=== PATIENT | female | born 1985 | race Caucasian/White ===

== ENCOUNTER 2024-02-12 12:29 | Emergency (ER) | payer SELFPAY ==
[~2024-02-12] VITALS: Ht 154.9 cm; Wt 58.0 kg
[2024-02-12 12:52] VITALS: TEMP 98.3; O2SAT 99
[2024-02-12 15:32] LABS: DIFFERENTIAL COMMENT 1; HEMATOCRIT. 38.6 % (36.0-48.0); MEAN CORPUSCULAR HEMOGLOBIN 31.7 pg (28.0-32.0); MEAN CORPUSCULAR HGB CONC 33.6 g/dL (31.0-37.0); MEAN CORPUSCULAR VOLUME 94.5 fL (81.0-99.0); MEAN PLATELET VOLUME 8.5 fl (7.4-10.4); PLATELET 217 x1000/uL (130-400); RED BLOOD CELL COUNT 4.09 mill/uL (4.2-5.4); RED CELL DISTRIBUTION WIDTH 12.8 % (11.6-14.6); WHITE BLOOD COUNT 8.3 x1000/uL (4.5-11.0)
[2024-02-12 15:35] LABS: CHLORIDE 104 mEq/L (98-107); POTASSIUM 4.2 mEq/L (3.5-5.1); SODIUM 137 mEq/L (136-145)
[2024-02-12 15:38] LABS: CALCIUM 9.2 mg/dL (8.7-10.4); CARBON DIOXIDE 25 mEq/L (21-32)
[2024-02-12] MEDS ORDERED: ONDANSETRON 4MG ODT PO STA (15:40)
[2024-02-12] MEDS ORDERED: MAGNESIUM/ALUMINUM HYDROXIDE/SIMETHICONE 30ML UDC PO STA (15:40)
[2024-02-12] MEDS ORDERED: DICYCLOMINE 10 MG/5 ML ORAL SYR PO STA (15:40)
[2024-02-12 15:42] LABS: CREATININE 0.7 mg/dL (0.6-1.0)
[2024-02-12 15:43] LABS: GLUCOSE 101 mg/dL (70-105); UREA NITROGEN BLOOD 8 mg/dL (9-23)
[2024-02-12 15:44] LABS: ALBUMIN 4.8 g/dL (3.2-4.8)
[2024-02-12 15:45] VITALS: BP 151/86; PULSE 98; RESP 18
[2024-02-12 15:45] LABS: ALANINE AMINOTRANSFERASE 111 IU/L (10-49); ASPARTATE AMINOTRANSFERASE 85 IU/L (<34); BILIRUBIN DIRECT 0.3 mg/dL (<=3.0); BILIRUBIN TOTAL 0.7 mg/dL (0.1-1.0); PROTEIN TOTAL 7.7 g/dL (6.0-8.3)
[2024-02-12] MEDS ORDERED: KETOROLAC 30MG/ML VIAL IM ONE (15:45)
[2024-02-12] MEDS: KETOROLAC 30MG/ML VIAL IM NR (15:45)
[2024-02-12 16:14] LABS: PLATELET ESTIMATE NORMAL
[2024-02-12 16:22] LABS: CLARITY URINE CLEAR (CLEAR); COLOR URINE YELLOW (YELLOW); GLUCOSE URINE NEGATIVE (NEGATIVE); KETONES URINE NEGATIVE (NEGATIVE); LEUKOCYTE ESTERASE URINE TRACE (NEGATIVE); NITRITE URINE NEGATIVE (NEGATIVE); OCCULT BLOOD URINE 3+ (NEGATIVE); PROTEIN URINE 1+ (NEGATIVE); SPECIFIC GRAVITY URINE 1.023 (1.005-1.030)
[2024-02-12 16:42] LABS: WBC URINE 0-2 /hpf (0-2)
[2024-02-12 16:43] LABS: BACTERIA URINE TRACE; RBC URINE 50-100 /hpf (0-2); SQUAMOUS EPITHELIAL CELL URINE RARE /lpf (RARE/1+)
[2024-02-12] MEDS ORDERED: FAMO-135 MT (17:22)
[2024-02-12] MEDS: ONDANSETRON 4MG ODT PO NR (17:30)
[2024-02-12] MEDS: MAGNESIUM/ALUMINUM HYDROXIDE/SIMETHICONE 30ML UDC PO NR (17:30)
[2024-02-12] MEDS: DICYCLOMINE HCL 10MG CAPSULE PO NR (17:32)
== END 2024-02-12 17:43 | disposition home or self-care (01) ==
LOC: ER 12:55
DX: K29.70 Gastritis, unspecified, without bleeding (principal); K76.0 Fatty (change of) liver, not elsewhere classified
CPT/HCPCS: 80076; 80048; 81003; 81025; 83690; 85025; 36415; 76700; 99284; Q0162; J1885; Z7610